=== PATIENT | female | born 1995 | race Caucasian/White ===

== ENCOUNTER 2016-11-20 16:16 | Emergency (ER) | payer BC, OTHER ==
[2016-11-20 16:24] VITALS: BP 140/78
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
[2016-11-20] MEDS ORDERED: Ketorolac 30 MG/ML SDV IM ONE (17:34)
[2016-11-20] MEDS ORDERED: Ondansetron 4 MG Tab.DIS PO ONE (17:34)
== END 2016-11-20 17:45 | disposition home or self-care (01) ==
LOC: DL.ED 16:16
DX: S16.1XXA Strain of muscle, fascia and tendon at neck level, initial encounter (principal); R51 Headache; H54.7 Unspecified visual loss; Z91.018 Allergy to other foods; V89.2XXA Person injured in unspecified motor-vehicle accident, traffic, initial encounter
CPT/HCPCS: 70450; 72125; 96374; 99284; A9270